=== PATIENT | female | born 1930 | race Caucasian/White ===

== ENCOUNTER 2017-09-21 12:44 | Emergency (ER) | payer OTHER ==
--- NOTE | 2017-09-21 12:55 | PDOC ---
History of Present Illness - General Stated Complaint: PAIN - History of Present Illness Initial Comments: 86 yo woman with pmh of HTN, anxiety, and severe dementia presenting with mechanical fall from [facility]. Pt was in usual state of health, severe dementia, when she experienced a mechanical fall on to R side when walking with staff member. No syncope, LOC, seizure noted, endorsed by EMS. Pt reporting minimal pain in R hip. No other symptoms reported by staff. Pt only speaks Romansh. Allergies: none Surgeries: CEA, hysterectomy Social: Lives in [place] at [place]; No drugs, alcohol or smoking PMD: Staff at [place] 09/21/17 12:51 Past History - Past Medical History Allergies/Adverse Reactions: Allergies Allergy/AdvReac Type Severity Reaction Status Date / Time No Known Allergies Allergy Verified 09/21/17 13:40 Home Medications: Ambulatory Orders Cephalexin [Keflex] 500 mg PO BID #14 capsule 09/21/17 Review of Systems - Review of Systems Comments:: GENERAL/CONSTITUTIONAL: No fever or chills. No weakness. HEAD, EYES, EARS, NOSE AND THROAT: No change in vision. No ear pain or discharge. No sore throat. CARDIOVASCULAR: No chest pain or shortness of breath RESPIRATORY: No cough, wheezing, or hemoptysis. GASTROINTESTINAL: No nausea, vomiting, diarrhea or constipation. GENITOURINARY: No dysuria, frequency, or change in urination. MUSCULOSKELETAL: No joint or muscle swelling or pain. No neck or back pain. SKIN: No rash NEUROLOGIC: No headache, vertigo, loss of consciousness, or change in strength/ sensation. ENDOCRINE: No increased thirst. No abnormal weight change HEMATOLOGIC/LYMPHATIC: No anemia, easy bleeding, or history of blood clots. ALLERGIC/IMMUNOLOGIC: No hives or skin allergy. 09/21/17 12:54 *Physical Exam - Physical Exam Comments: GENERAL: Elderly woman, Awake, alert, and fully oriented, in no acute distress HEAD: Trace bruising on forehead. No other signs of trauma, bony step offs, deformities, crepitus EYES: PERRLA, EOMI, sclera anicteric, conjunctiva clear ENT: Auricles normal inspection, hearing grossly normal, nares patent, oropharynx clear without exudates. Moist mucosa NECK: Normal ROM, supple, no lymphadenopathy, JVD, or masses LUNGS: No distress, speaks full sentences, clear to auscultation bilaterally HEART: Regular rate and rhythm, normal S1 and S2, no murmurs, rubs or gallops, peripheral pulses normal and equal bilaterally. ABDOMEN: Globular, Soft, nontender, normoactive bowel sounds. No guarding, no rebound. No masses EXTREMITIES : Normal inspection, no limitation of ROM, no pain of palpation of R /L hip. no edema. 2+ DP/PT pulses. No gross deformities, crepitus, focal edema, bruising, or neurovascular findings. No clubbing or cyanosis. NEUROLOGICAL: Cranial nerves II through XII grossly intact. Normal speech, normal gait, no focal sensorimotor deficits. normal neuro exam in LEs. SKIN: Warm, Dry, normal turgor, no rashes or lesions noted 09/21/17 12:54 Medical Decision Making - Medical Decision Making 86 yo woman w/ htn, anxiety, dementia, presents s/p mechanical fall at [facility]. Currently pain free, with PE only notable for trauma bruising on anterior forehead. No other findings. Will order UA, CT head/neck, XR of HIP and R leg. If normal imaging findings, will d/c back to [place]. 09/21/17 14:01 UA notable for likely UTI. Urine cultures sent. If imaging normal, will d/c back to [facility] with 1 week of Keflex. 09/21/17 15:40 *DC/Admit/Observation/Transfer Diagnosis at time of Disposition: Fall Qualifiers: Encounter type: initial encounter Qualified Code(s): W19.XXXA - Unspecified fall, initial encounter UTI (urinary tract infection) Qualifiers: Urinary tract infection type: site unspecified Hematuria presence: with hematuria Qualified Code(s): N39.0 - Urinary tract infection, site not specified - Discharge Dispostion Disposition: RESIDENTIAL FACILITY Condition at time of disposition: Good Decision to Admit order: No - Prescriptions Prescriptions: Cephalexin [Keflex] 500 mg PO BID #14 capsule - Referrals Referrals: Gabrielle Hernandez MD [Primary Care Provider] - 1 week - Patient Instructions Additional Instructions: During your visit to the [facility] ED, you were evaluated for a fall at your intermediate. You received imaging of you head, neck, pelvis and R leg, which were all normal. You are being discharged back to your intermediate with outpatient follow-up with your primary care provider. You were diagnosed with a urinary tract infection during your admission. You are being discharge with one week of Keflex for antibiotic coverage. Please take one pill by mouth, twice a day, for the next seven days. Please take tylenol 650mg every four hours if you experience pain until your symptoms resolve. If you experience any of the following symptoms, please return to the ED: - Persistent pain anywhere in your body - Pain in your legs/hips when walking - Changes in vision, numbness/weakness in any extremities, or persistent dizziness/loss of consciousness - persistent fevers/chills for >3 days - worsening pain on urination - Any new or concerning symptoms - Post Discharge Activity
--- NOTE | 2017-09-21 13:06 | PDOC ---
Attending Attestation - HPI HPI: 09/21/17 13:24 The patient is a 86 year old, Turkmen speaking female, with a significant past medical history of hypertension, anxiety, and severe dementia, who presents to the emergency department from [facility] s/p witnessed mechanical fall earlier today. Per EMS, the patient was ambulating with [place] staff, when she lost her balance, landing on top of staff member, and on her right side. Unclear whether patient hit her head. As per daughter who is present at bedside, the patient is not complaining of any hip,leg, neck, or back pain. Daughter states during last fall in April, patient was diagnosed with a UTI. Patient denies any dysuria, hematuria, abdominal pain, or nausea. No other injuries. History is limited due to dementia at baseline. - Physicial Exam PE: 09/21/17 13:25 Constitutional: Awake and alert. Pleasantly demented. No acute distress. Head: Normocephalic. Atraumatic Eyes: PERRL. EOMI. Conjunctivae are not pale. ENT: Mucous membranes are moist and intact. Posterior pharynx without exudates or erythema. Uvula midline. Neck: Supple. Full ROM. No lymphadenopathy. Cardiovascular: Regular rate. Regular rhythm. S1, S2 regular. Distal pulses are 2+ and symmetric. Pulmonary/Chest: No evidence of respiratory distress. Clear to auscultation bilaterally No wheezing, rales or rhonchi. Abdominal: Soft and non-distended. There is no tenderness. No rebound, guarding or rigidity. No organomegaly. No palpable masses. Good bowel sounds. Back: No CVA tenderness. Musculoskeletal: Negative log roll of legs bilaterally. No hip tenderness. Pelvis intact. No edema. No cyanosis. No clubbing. Full range of motion in all extremities. No calf tenderness. Radial/pedal pulses are intact and 2+ bilaterally Skin: Skin is warm and dry. No petechiae. No purpura. Neurological: Alert and oriented to person. Cranial nerves II-XII are grossly intact. Normal speech. Strength is grossly symmetric. No sensory deficits. Psychiatric: Good eye contact. Normal interaction, affect and behavior. - Medical Decision Making 09/21/17 13:24 Documentation prepared by Dorys Funez, acting as certified ophthalmic medical technician for Winnie Winkler DO. <Dorys Funez - Last Filed: 09/21/17 13:24> - Resident Resident Name: Pranay Johnson - ED Attending Attestation I have performed the following: I have examined & evaluated the patient, The case was reviewed & discussed with the resident, I agree w/resident's findings & plan, Exceptions are as noted - Medical Decision Making 09/21/17 13:05 I, Dr. Winnie Winkler, DO, attest that this document has been prepared under my direction and personally reviewed by me in its entirety. I further attest, that it accurately reflects all work, treatment, procedures and medical decision -making performed by me. 09/21/17 13:37 a/p: 86yo female with fall at the facility -pt is pleasantly demented -denies pain at this time -mild ecchymosis to forehead pelvis is stable abd soft, nt/nd daughter at the bedside translating states mother at bedside mental status 09/21/17 15:24 pt with UTI will start abx 09/21/17 15:51 discussed ua results with the daughter and the patient daughter requesting to drive the patient back to the [place] pending xray results if negative stable for d/c back to the facility <Winnie Winkler - Last Filed: 09/21/17 15:52>
[2017-09-21 13:09] VITALS: BP 138/63; PULSE 73; BMI 29.2
[2017-09-21 14:07] VITALS: TEMP 98.8
[2017-09-21 14:36] LABS: URINE APPEARANCE TURBID; URINE BILIRUBIN NEGATIVE (<2.0 mg/dL); URINE GLUCOSE (UA) NEGATIVE (NEGATIVE); URINE KETONE NEGATIVE (NEGATIVE); URINE NITRITE NEGATIVE (NEGATIVE); URINE UROBILINOGEN NEGATIVE mg/dL (0.2-1.0)
[2017-09-21 14:37] LABS: URINE LEUK ESTERASE 3+ (NEGATIVE); URINE PROTEIN 2+ (NEGATIVE)
[2017-09-21 14:38] LABS: URINE COLOR YELLOW
[2017-09-21 14:55] LABS: EPI CELLS RARE /HPF (FEW); URINE MUCUS RARE
[2017-09-21] MEDS ORDERED: CEPHALEXIN MONOHYDRATE 500 MG CAPSULE (UD) PO ONE (15:25)
[2017-09-21] MEDS ORDERED: CEPHALEXIN MONOHYDRATE 500 MG CAPSULE (UD) ONE (15:55)
== END 2017-09-21 17:00 ==
LOC: JER 12:44
DX: N39.0 Urinary tract infection, site not specified (principal); W18.39XA Other fall on same level, initial encounter; Y93.89 Activity, other specified; Y92.129 Unspecified place in nursing home as the place of occurrence of the external cause; I10 Essential (primary) hypertension; F03.90 Unspecified dementia, unspecified severity, without behavioral disturbance, psychotic disturbance, mood disturbance, and anxiety; F41.9 Anxiety disorder, unspecified
CPT/HCPCS: 70450-TC; 72125-TC; 72170-TC-FY; 73552-TC-RT-FY; 81003; 81015; 87086; 87186; 99282-25